=== PATIENT | female | born 1995 | race Two or more races ===

== ENCOUNTER 2023-12-22 09:10 | Emergency (ER) | payer MEDICAID ==
[~2023-12-22] VITALS: Ht 165.1 cm; Wt 64.5 kg
[2023-12-22 09:15] VITALS: TEMP 97.5
[2023-12-22 09:23] VITALS: BP 117/74; PULSE 87; RESP 18; O2SAT 97
[2023-12-22] MEDS: FLUORESCEIN SOD OPTH TEST STRIP EACHEYE ONE (10:53)
[2023-12-22] MEDS: TETRACAINE HCL 0.5% OPTH(EYE) SOLN 4ML EACHEYE ONE (10:53)
[2023-12-22] MEDS ORDERED: POLYSOL28 OP (11:17)
== END 2023-12-22 11:28 | disposition home or self-care (01) ==
LOC: ER 09:10
DX: S05.02XA Injury of conjunctiva and corneal abrasion without foreign body, left eye, initial encounter (principal); X58.XXXA Exposure to other specified factors, initial encounter; Y93.89 Activity, other specified; Y92.89 Other specified places as the place of occurrence of the external cause; Y99.8 Other external cause status

== ENCOUNTER 2023-12-23 10:16 | Emergency (ER) | payer MEDICAID ==
[~2023-12-23] VITALS: Ht 165.1 cm; Wt 66.1 kg
[~2023-12-23 10:16] MED LIST: POLYSOL28 OP
[2023-12-23 11:17] VITALS: BP 141/86; PULSE 98; RESP 14; TEMP 97.4; O2SAT 98
== END 2023-12-23 11:21 | disposition home or self-care (01) ==
LOC: ER 10:16
DX: T15.02XA Foreign body in cornea, left eye, initial encounter (principal); W44.8XXA Other foreign body entering into or through a natural orifice, initial encounter; Y93.89 Activity, other specified; Y92.89 Other specified places as the place of occurrence of the external cause; Y99.8 Other external cause status
CPT/HCPCS: 65222